=== PATIENT | female | born 1975 | race African-American/Black ===

== ENCOUNTER 2016-07-30 22:09 | Emergency (ER) | payer MEDICAID ==
[~2016-07-30] VITALS: Ht 152.4 cm; Wt 146.0 kg
[~2016-07-30 22:09] MED LIST: ALPR2TAB2 PO; CARI350T PO; COMBIVENT; HYDR-523 PO; LOSA50TA20 PO; NORT50CA PO; WARF7.5T22 PO; ZOLP5TAB2 PO; albuterol
[2016-07-30] MEDS ORDERED: PROCHLORPERAZINE MALEATE 10MG TABLET PO ONE (23:15)
[2016-07-30] MEDS ORDERED: DIPHENHYDRAMINE 50MG CAPSULE PO ONE (23:15)
[2016-07-30 23:36] LABS: BASOPHILS % 0.4 % (0.0-2.0); EOSINOPHILS % 1.1 % (0.0-5.0); HEMATOCRIT. 37.8 % (36.0-48.0); HEMOGLOBIN. 12.7 g/dL (12.0-16.0); LYMPHOCYTES % 17.9 % (20.0-50.0); MEAN CORPUSCULAR HEMOGLOBIN 29.6 pg (28.0-32.0); MEAN CORPUSCULAR HGB CONC 33.6 g/dL (31.0-37.0); MONOCYTES % 5.6 % (2.0-8.0); PLATELET 292 x1000/uL (130-400); RED BLOOD CELL COUNT 4.29 mill/uL (4.2-5.4); RED CELL DISTRIBUTION WIDTH 14.9 % (11.6-14.6); WHITE BLOOD COUNT 10.4 x1000/uL (4.5-11.0)
[2016-07-30 23:39] LABS: CHLORIDE 106 mEq/L (98-107); INDEX HEMOLYSI 1 (1-3); INDEX ICTERIC 1 (1-4); INDEX LIPEMIC 1 (1-3)
[2016-07-30 23:42] LABS: HCG SCREEN NEGATIVE
[2016-07-30 23:48] LABS: ALANINE AMINOTRANSFERASE 36 IU/L (13-61); ALBUMIN 3.6 g/dL (3.4-5.0); ANION GAP 13; CALCIUM 8.7 mg/dL (8.5-10.1); CARBON DIOXIDE 23 mEq/L (21-32); UREA NITROGEN BLOOD 10 mg/dL (7-21); eGFR > 60 mL/min (>60)
[2016-07-31] MEDS ORDERED: METOCLOPRAMIDE HCL 10MG/2ML VIAL IV ONE (01:00)
[2016-07-31 02:25] VITALS: BP 141/76
== END 2016-07-31 02:59 | disposition home or self-care (01) ==
LOC: ER 22:12
DX: R51 Headache (principal); R73.9 Hyperglycemia, unspecified; E11.9 Type 2 diabetes mellitus without complications; E78.00 Pure hypercholesterolemia, unspecified; F17.210 Nicotine dependence, cigarettes, uncomplicated; I10 Essential (primary) hypertension; J45.909 Unspecified asthma, uncomplicated; Z90.710 Acquired absence of both cervix and uterus; Z88.6 Allergy status to analgesic agent; Z86.711 Personal history of pulmonary embolism
CPT/HCPCS: 36415; 70450; 80053; 84703; 85025; 96374; 99285; J2765; Z7610; Q0163; Q0164

== ENCOUNTER 2016-09-23 17:46 | Emergency (ER) | payer MEDICAID ==
[~2016-09-23] VITALS: Ht 152.4 cm; Wt 157.0 kg
[2016-09-23 18:20] VITALS: BP 109/47
== END 2016-09-23 23:50 | disposition left against medical advice (07) ==
LOC: ER 17:47
DX: R11.2 Nausea with vomiting, unspecified (principal); Z53.21 Procedure and treatment not carried out due to patient leaving prior to being seen by health care provider

== ENCOUNTER 2016-12-04 00:07 | Emergency (ER) | payer MEDICAID ==
[~2016-12-04] VITALS: Ht 152.4 cm; Wt 150.0 kg
[2016-12-04] MEDS ORDERED: ONDANSETRON HCL 4MG/2ML VIAL IV STA (00:30)
[2016-12-04] MEDS ORDERED: SODIUM CHLORIDE 0.9% 1,000 ML IV ONE (00:30)
[2016-12-04] MEDS ORDERED: MORPHINE SULFATE 4 MG/ML CPJ (NOT FOR IM USE) IV STA (00:30)
[2016-12-04 00:46] LABS: BASOPHILS % 0.3 % (0.0-2.0); EOSINOPHILS % 0.2 % (0.0-5.0); HEMOGLOBIN. 13.4 g/dL (12.0-16.0); LYMPHOCYTES % 7.2 % (20.0-50.0); MEAN CORPUSCULAR HEMOGLOBIN 29.7 pg (28.0-32.0); MEAN CORPUSCULAR VOLUME 86.3 fL (81.0-99.0); MEAN PLATELET VOLUME 8.4 fl (7.4-10.4); MONOCYTES % 4.2 % (2.0-8.0); NEUTROPHILS % 88.1 % (40.0-76.0); PLATELET 286 x1000/uL (130-400); RED BLOOD CELL COUNT 4.52 mill/uL (4.2-5.4); RED CELL DISTRIBUTION WIDTH 14.5 % (11.6-14.6)
[2016-12-04 00:53] LABS: CHLORIDE 100 mEq/L (98-107)
[2016-12-04 00:54] LABS: HCG SCREEN NEGATIVE
[2016-12-04 00:55] LABS: PROTHROMBIN TIME 10.8 sec
[2016-12-04 01:01] LABS: CARBON DIOXIDE 25 mEq/L (21-32)
[2016-12-04 04:17] LABS: CLARITY URINE CLEAR (CLEAR); COLOR URINE YELLOW (YELLOW); GLUCOSE URINE 3+ (NEGATIVE); KETONES URINE 1+ (NEGATIVE); LEUKOCYTE ESTERASE URINE 2+ (NEGATIVE); NITRITE URINE POSITIVE (NEGATIVE); OCCULT BLOOD URINE 2+ (NEGATIVE); PROTEIN URINE 1+ (NEGATIVE); SPECIFIC GRAVITY URINE 1.015 (1.005-1.030); UROBILINOGEN URINE 0.2 E.U./dL (0.2-1.0)
[2016-12-04] MEDS ORDERED: PANTOPRAZOLE SODIUM 40 MG/VIAL IV ONE (07:00)
[2016-12-04] MEDS ORDERED: FAMOTIDINE 20MG/2ML VIAL IV ONE (07:00)
[2016-12-04] MEDS ORDERED: MORPHINE SULFATE 4 MG/ML CPJ (NOT FOR IM USE) IV ONE (07:15)
[2016-12-04 08:55] VITALS: BP 158/84
[2016-12-04] MEDS ORDERED: IOHEXOL-300 100 ML BOTTLE ONE (14:28)
[2016-12-04] MEDS ORDERED: SODIUM CHLORIDE 0.9% 10ML VIAL ONE (14:28)
== END 2016-12-04 09:16 | disposition home or self-care (01) ==
LOC: ER 00:07
DX: K29.80 Duodenitis without bleeding (principal); N39.0 Urinary tract infection, site not specified; M79.7 Fibromyalgia; J45.909 Unspecified asthma, uncomplicated; I10 Essential (primary) hypertension; E78.00 Pure hypercholesterolemia, unspecified; E11.9 Type 2 diabetes mellitus without complications; Z79.01 Long term (current) use of anticoagulants; Z90.49 Acquired absence of other specified parts of digestive tract; Z90.710 Acquired absence of both cervix and uterus; Z88.6 Allergy status to analgesic agent
CPT/HCPCS: 36415; 74177; 80053; 81001; 82962; 83690; 84703; 85025; 85610; 96361; 96374; 96375; 96376; 99285; A4216; C9113; J2270; J2405; J3490; J7030; Q9967; Z7610

== ENCOUNTER 2017-01-04 23:11 | Emergency (ER) | payer MEDICAID ==
[~2017-01-04] VITALS: Ht 152.4 cm; Wt 137.0 kg
[2017-01-05] MEDS ORDERED: PREDNISONE 20MG TABLET PO ONE (04:00)
[2017-01-05] MEDS ORDERED: LIDOCAINE 5% PATCH TOP SCH (04:00)
[2017-01-05] MEDS ORDERED: HYDROCODONE/ACETAMINOPHEN 10/325MG TABLET PO ONE (07:15)
[2017-01-05 07:40] VITALS: BP 147/92
== END 2017-01-05 07:43 | disposition home or self-care (01) ==
LOC: ER 23:11
DX: M76.61 Achilles tendinitis, right leg (principal); M72.2 Plantar fascial fibromatosis; G89.29 Other chronic pain; E11.9 Type 2 diabetes mellitus without complications; I10 Essential (primary) hypertension; M79.7 Fibromyalgia; J45.909 Unspecified asthma, uncomplicated; E78.00 Pure hypercholesterolemia, unspecified; F12.10 Cannabis abuse, uncomplicated; F17.210 Nicotine dependence, cigarettes, uncomplicated; Z88.6 Allergy status to analgesic agent; Z79.01 Long term (current) use of anticoagulants; Z86.711 Personal history of pulmonary embolism; Z90.710 Acquired absence of both cervix and uterus
CPT/HCPCS: 73630; 82962; 93971; 99284; J7512

== ENCOUNTER 2017-03-24 21:53 | Emergency (ER) | payer MEDICAID, OTHER ==
[~2017-03-24] VITALS: Ht 152.4 cm; Wt 144.0 kg
[2017-03-24] MEDS ORDERED: ONDANSETRON HCL 4MG/2ML VIAL IV STA (22:42)
[2017-03-24] MEDS ORDERED: METHYLPREDNISOLONE SOD SUCC 125 MG/2 ML VIAL IV STA (22:42)
[2017-03-24] MEDS ORDERED: MORPHINE SULFATE 4 MG/ML CPJ (NOT FOR IM USE) IV STA (22:42)
[2017-03-24] MEDS ORDERED: IPRATROPIUM BROMIDE (0.02%) 0.5MG/2.5ML NEB HHN STA (22:42)
[2017-03-24] MEDS ORDERED: ALBUTEROL (0.083%) 2.5MG/3ML NEB HHN STA (22:42)
[2017-03-24] MEDS ORDERED: SODIUM CHLORIDE 0.9% 1,000 ML IV ONE (22:42)
[2017-03-24] MEDS ORDERED: ASPIRIN 81MG TABLET PO ONE (22:45)
[2017-03-24] MEDS ORDERED: MAGNESIUM 2 G PREMIX 50 ML IV ONE (22:45)
[2017-03-24 23:16] LABS: BASOPHILS % 0.5 % (0.0-2.0); EOSINOPHILS % 1.2 % (0.0-5.0); HEMATOCRIT. 38.1 % (36.0-48.0); HEMOGLOBIN. 13.1 g/dL (12.0-16.0); LYMPHOCYTES % 14.2 % (20.0-50.0); MEAN CORPUSCULAR HEMOGLOBIN 29.2 pg (28.0-32.0); MEAN CORPUSCULAR VOLUME 84.6 fL (81.0-99.0); MEAN PLATELET VOLUME 7.7 fl (7.4-10.4); MONOCYTES % 13.9 % (2.0-8.0); NEUTROPHILS % 70.2 % (40.0-76.0); PLATELET 234 x1000/uL (130-400); RED CELL DISTRIBUTION WIDTH 14.5 % (11.6-14.6)
[2017-03-24 23:18] LABS: CLARITY URINE TURBID (CLEAR); COLOR URINE DARK YELLOW (YELLOW); GLUCOSE URINE NEGATIVE (NEGATIVE); KETONES URINE TRACE (NEGATIVE); LEUKOCYTE ESTERASE URINE 1+ (NEGATIVE); NITRITE URINE POSITIVE (NEGATIVE); OCCULT BLOOD URINE NEGATIVE (NEGATIVE); PH URINE 5.5 (4.5-8.0); PROTEIN URINE TRACE (NEGATIVE); SPECIFIC GRAVITY URINE 1.023 (1.005-1.030)
[2017-03-24] MEDS ORDERED: DIPHENHYDRAMINE 50MG/ML VIAL IV ONE (23:30)
[2017-03-24 23:33] LABS: CARBON DIOXIDE 21 mEq/L (21-32); CHLORIDE 105 mEq/L (98-107); ETHANOL BLOOD < 10 mg/dL; TROPONIN I < 0.02 ng/mL (0.00-0.04)
[2017-03-24] MEDS ORDERED: SODIUM CHLORIDE 0.9% 1,000 ML IV NR (23:58)
[2017-03-25] MEDS ORDERED: INSULIN REGULAR (HUMULIN R) 300UNITS/3ML IV NR
[2017-03-25 00:05] LABS: *AMPHETAMINES SCREEN URINE NEGATIVE (NEGATIVE); *BARBITURATES SCREEN URINE NEGATIVE (NEGATIVE); *BENZODIAZEPINES SCREEN URINE NEGATIVE (NEGATIVE); *COCAINE SCREEN URINE NEGATIVE (NEGATIVE); CANNABINOID URINE SCREEN NEGATIVE (NEGATIVE); METHADONE URINE SCREEN NEGATIVE (NEGATIVE); OPIATES URINE SCREEN NEGATIVE (NEGATIVE); PHENCYCLIDINE URINE SCREEN NEGATIVE (NEGATIVE)
[2017-03-25] MEDS ORDERED: IOHEXOL-350 100 ML BOTTLE ONE (01:04)
[2017-03-25 02:58] VITALS: BP 138/81
== END 2017-03-25 03:01 | disposition home or self-care (01) ==
LOC: ER 21:53
DX: R07.89 Other chest pain (principal); E11.65 Type 2 diabetes mellitus with hyperglycemia; N39.0 Urinary tract infection, site not specified; E78.00 Pure hypercholesterolemia, unspecified; J45.909 Unspecified asthma, uncomplicated; M79.7 Fibromyalgia; F17.210 Nicotine dependence, cigarettes, uncomplicated; F12.10 Cannabis abuse, uncomplicated; Z86.711 Personal history of pulmonary embolism; Z90.710 Acquired absence of both cervix and uterus; Z79.01 Long term (current) use of anticoagulants; Z91.14 Patient's other noncompliance with medication regimen
CPT/HCPCS: 36415; 71010; 71275; 80053; 80305; 81001; 82962; 83690; 83880; 84484; 85025; 85379; 93005; 94640; 96361; 96365; 96375; 99285; G0482; J1200; J1815; J2270; J2405; J2930; J3475; J7030; J7611; Q9967; Z7610

== ENCOUNTER 2017-04-14 18:58 | Emergency (ER) | payer MEDICAID ==
[~2017-04-14] VITALS: Ht 152.4 cm; Wt 128.0 kg
[2017-04-14] MEDS ORDERED: METF500T4 PO (19:12)
[2017-04-14] MEDS ORDERED: GLIP5TAB12 PO (19:12)
[2017-04-14] MEDS ORDERED: GABA-529 PO (19:12)
[2017-04-14] MEDS ORDERED: SODIUM CHLORIDE 0.9% 1,000 ML IV ONE (23:15)
[2017-04-14] MEDS ORDERED: MORPHINE SULFATE 4 MG/ML CPJ (NOT FOR IM USE) IV STA (23:15)
[2017-04-14] MEDS ORDERED: ONDANSETRON HCL 4MG/2ML VIAL IV STA (23:15)
[2017-04-14 23:39] LABS: CLARITY URINE CLOUDY (CLEAR); COLOR URINE YELLOW (YELLOW); GLUCOSE URINE NEGATIVE (NEGATIVE); KETONES URINE TRACE (NEGATIVE); LEUKOCYTE ESTERASE URINE 2+ (NEGATIVE); NITRITE URINE POSITIVE (NEGATIVE); OCCULT BLOOD URINE NEGATIVE (NEGATIVE); PROTEIN URINE 2+ (NEGATIVE); SPECIFIC GRAVITY URINE 1.022 (1.005-1.030)
[2017-04-14] MEDS ORDERED: MORPHINE SULFATE 10 MG/ML CPJ IV STA (23:42)
[2017-04-14 23:44] LABS: BASOPHILS % 0.4 % (0.0-2.0); EOSINOPHILS % 1.9 % (0.0-5.0); HEMATOCRIT. 37.8 % (36.0-48.0); HEMOGLOBIN. 12.6 g/dL (12.0-16.0); LYMPHOCYTES % 17.7 % (20.0-50.0); MEAN CORPUSCULAR HEMOGLOBIN 28.8 pg (28.0-32.0); MEAN CORPUSCULAR VOLUME 86.3 fL (81.0-99.0); MEAN PLATELET VOLUME 8.4 fl (7.4-10.4); MONOCYTES % 4.4 % (2.0-8.0); NEUTROPHILS % 75.6 % (40.0-76.0); PLATELET 246 x1000/uL (130-400); RED BLOOD CELL COUNT 4.38 mill/uL (4.2-5.4); RED CELL DISTRIBUTION WIDTH 15.1 % (11.6-14.6)
[2017-04-14] MEDS ORDERED: MORPHINE SULFATE 10 MG/ML CPJ IV SCH (23:45)
[2017-04-14 23:47] LABS: CARBON DIOXIDE 26 mEq/L (21-32); CHLORIDE 105 mEq/L (98-107)
[2017-04-15] MEDS ORDERED: CEFTRIAXONE 1 G PREMIX 50 ML IV ONE (01:30)
[2017-04-15 04:38] VITALS: BP 110/69
== END 2017-04-15 04:42 | disposition home or self-care (01) ==
LOC: ER 19:35
DX: N39.0 Urinary tract infection, site not specified (principal); E11.65 Type 2 diabetes mellitus with hyperglycemia; I10 Essential (primary) hypertension; E78.00 Pure hypercholesterolemia, unspecified; J45.909 Unspecified asthma, uncomplicated; M79.7 Fibromyalgia; F17.210 Nicotine dependence, cigarettes, uncomplicated; Z79.01 Long term (current) use of anticoagulants; Z79.899 Other long term (current) drug therapy
CPT/HCPCS: 36415; 71010; 80053; 81001; 81025; 83690; 85025; 96361; 96365; 96375; 99285; J0696; J2270; J2405; J7030; Z7610

== ENCOUNTER 2017-05-11 19:28 | Inpatient (IN) | payer MEDICAID ==
[~2017-05-11] VITALS: Ht 152.4 cm; Wt 130.6 kg
[~2017-05-11 19:28] MED LIST changes: +GABA-529 PO; +GLIP5TAB12 PO; +METF500T4 PO
[2017-05-12] MEDS ORDERED: ONDANSETRON HCL 4MG/2ML VIAL IV STA (00:05)
[2017-05-12] MEDS ORDERED: SODIUM CHLORIDE 0.9% 1,000 ML IV ONE (00:05)
[2017-05-12] MEDS ORDERED: MORPHINE SULFATE 4 MG/ML CPJ (NOT FOR IM USE) IV STA (00:05)
[2017-05-12 00:29] LABS: BASOPHILS % 0.4 % (0.0-2.0); EOSINOPHILS % 1.9 % (0.0-5.0); HEMATOCRIT. 37.5 % (36.0-48.0); HEMOGLOBIN. 12.6 g/dL (12.0-16.0); LYMPHOCYTES % 17.1 % (20.0-50.0); MEAN CORPUSCULAR HEMOGLOBIN 29.3 pg (28.0-32.0); MEAN CORPUSCULAR VOLUME 87.1 fL (81.0-99.0); MEAN PLATELET VOLUME 8.8 fl (7.4-10.4); MONOCYTES % 5.7 % (2.0-8.0); NEUTROPHILS % 74.9 % (40.0-76.0); PLATELET 285 x1000/uL (130-400); RED CELL DISTRIBUTION WIDTH 15.3 % (11.6-14.6)
[2017-05-12 00:30] LABS: CHLORIDE 106 mEq/L (98-107)
[2017-05-12 00:35] LABS: INR 1.1; PROTHROMBIN TIME 11.8 sec (9.4-11.6)
[2017-05-12 00:39] LABS: CARBON DIOXIDE 27 mEq/L (21-32)
[2017-05-12 00:42] LABS: CLARITY URINE CLEAR (CLEAR); COLOR URINE YELLOW (YELLOW); KETONES URINE NEGATIVE (NEGATIVE); LEUKOCYTE ESTERASE URINE NEGATIVE (NEGATIVE); NITRITE URINE NEGATIVE (NEGATIVE); OCCULT BLOOD URINE NEGATIVE (NEGATIVE); PH URINE 7.5 (4.5-8.0); PROTEIN URINE NEGATIVE (NEGATIVE); SPECIFIC GRAVITY URINE 1.009 (1.005-1.030); UROBILINOGEN URINE 0.2 E.U./dL (0.2-1.0)
[2017-05-12] MEDS ORDERED: DICYCLOMINE HCL 10MG/ML 2ML AMP IM PRN ×2 (02:00→11:00)
[2017-05-12] MEDS ORDERED: METOCLOPRAMIDE HCL 10MG/2ML VIAL IV ONE (03:15)
[2017-05-12] MEDS ORDERED: ONDANSETRON HCL 4MG/2ML VIAL IV ONE (04:15)
[2017-05-12] MEDS ORDERED: MORPHINE SULFATE 4 MG/ML CPJ (NOT FOR IM USE) IV ONE (04:15)
[2017-05-12 09:30] VITALS: BP 125/86
[2017-05-12 09:45] VITALS: BP 125/86
[2017-05-12] MEDS ORDERED: DEXTROSE 50% WATER 50ML SYRINGE IV PRN (10:30)
[2017-05-12] MEDS ORDERED: DOCUSATE SODIUM 100MG CAPSULE PO PRN (10:30)
[2017-05-12] MEDS ORDERED: CLONIDINE 0.1MG TABLET PO PRN (10:30)
[2017-05-12] MEDS ORDERED: IPRATROPIUM/ALBUTEROL 0.5-3(2.5)MG/3ML NEB INH PRN (10:30)
[2017-05-12] MEDS: PANTOPRAZOLE SODIUM 40 MG/VIAL IV SCH (11:40)
[2017-05-12 12:00] VITALS: BP 121/74
[2017-05-12] MEDS ORDERED: DICYCLOMINE HCL 20MG TABLET PO SCH (12:00)
[2017-05-12] MEDS: LOSARTAN POTASSIUM 50 MG TABLET PO SCH (12:00)
[2017-05-12] MEDS ORDERED: METOCLOPRAMIDE HCL 10MG TABLET PO SCH (12:00)
[2017-05-12] MEDS: BLOOD SUGAR DIAGNOSTIC STRIP TEST SCH ×3 (12:20→21:09)
[2017-05-12 12:46] LABS: CLARITY URINE CLEAR (CLEAR); COLOR URINE YELLOW (YELLOW); KETONES URINE 1+ (NEGATIVE); LEUKOCYTE ESTERASE URINE NEGATIVE (NEGATIVE); NITRITE URINE NEGATIVE (NEGATIVE); OCCULT BLOOD URINE NEGATIVE (NEGATIVE); PH URINE 8.5 (4.5-8.0); PROTEIN URINE NEGATIVE (NEGATIVE); SPECIFIC GRAVITY URINE 1.012 (1.005-1.030); UROBILINOGEN URINE 0.2 E.U./dL (0.2-1.0)
[2017-05-12] MEDS: INSULIN LISPRO 100 UNITS/ML SUBCUT SCH ×3 (12:48→21:44)
[2017-05-12 13:08] LABS: *AMPHETAMINES SCREEN URINE NEGATIVE (NEGATIVE); *BARBITURATES SCREEN URINE NEGATIVE (NEGATIVE); *BENZODIAZEPINES SCREEN URINE NEGATIVE (NEGATIVE); *COCAINE SCREEN URINE NEGATIVE (NEGATIVE); CANNABINOID URINE SCREEN NEGATIVE (NEGATIVE); METHADONE URINE SCREEN NEGATIVE (NEGATIVE); PHENCYCLIDINE URINE SCREEN NEGATIVE (NEGATIVE)
[2017-05-12] MEDS: ONDANSETRON HCL 4MG/2ML VIAL IV PRN ×2 (13:18→20:30)
[2017-05-12] MEDS: DEXT 5%/0.45% NACL KCL 20MEQ/L 1,000 ML IV SCH ×2 (13:18→20:33)
[2017-05-12 13:40] LABS: OPIATES URINE SCREEN PRESUMTIVE POSITIVE (NEGATIVE)
[2017-05-12] MEDS: MORPHINE SULFATE 2 MG/ML CPJ (NOT FOR IM USE) IV PRN ×2 (14:28→18:23)
[2017-05-12 16:00] VITALS: BP 130/59
[2017-05-12 20:00] VITALS: BP 121/68
[2017-05-12] MEDS ORDERED: POTASSIUM CHLORIDE 20MEQ TABLET SR PO NR (20:30)
[2017-05-12] MEDS: ZOLPIDEM TARTRATE 5MG TABLET PO PRN (22:45)
[2017-05-12] MEDS ORDERED: HYDROCODONE/ACETAMINOPHEN 5/325MG TABLET PO PRN (22:45)
[2017-05-12] MEDS: METOCLOPRAMIDE HCL 10MG/2ML VIAL IV PRN (22:51)
[2017-05-12] MEDS: DIPHENHYDRAMINE 50MG/ML VIAL IV PRN (23:36)
[2017-05-13] VITALS: BP 128/71
[2017-05-13 04:00] VITALS: BP 130/78
[2017-05-13] MEDS: METOCLOPRAMIDE HCL 10MG/2ML VIAL IV PRN ×2 (05:25→12:50)
[2017-05-13] MEDS: DEXT 5%/0.45% NACL KCL 20MEQ/L 1,000 ML IV SCH ×3 (05:28→21:00)
[2017-05-13 05:52] LABS: BASOPHILS % 0.4 % (0.0-2.0); HEMATOCRIT. 40.3 % (36.0-48.0); HEMOGLOBIN. 13.9 g/dL (12.0-16.0); LYMPHOCYTES % 14.8 % (20.0-50.0); MONOCYTES % 7.6 % (2.0-8.0); NEUTROPHILS % 75.2 % (40.0-76.0); PLATELET 288 x1000/uL (130-400); RED BLOOD CELL COUNT 4.63 mill/uL (4.2-5.4); RED CELL DISTRIBUTION WIDTH 15.5 % (11.6-14.6)
[2017-05-13] MEDS: BLOOD SUGAR DIAGNOSTIC STRIP TEST SCH ×4 (07:20→21:02)
[2017-05-13 07:48] LABS: CARBON DIOXIDE 27 mEq/L (21-32); CHLORIDE 104 mEq/L (98-107); HDL CHOLESTEROL 47 mg/dL (40-59); LDL CHOLESTEROL 129 mg/dL (5-100)
[2017-05-13] MEDS: INSULIN LISPRO 100 UNITS/ML SUBCUT SCH ×4 (07:50→22:19)
[2017-05-13 08:00] VITALS: BP 139/93
[2017-05-13] MEDS: LOSARTAN POTASSIUM 50 MG TABLET PO SCH (08:47)
[2017-05-13] MEDS: PANTOPRAZOLE SODIUM 40 MG/VIAL IV SCH ×2 (08:47→17:42)
[2017-05-13] MEDS: ACETAMINOPHEN 325MG TABLET PO PRN (08:58)
[2017-05-13 12:00] VITALS: BP 144/88
[2017-05-13] MEDS ORDERED: MORPHINE SULFATE 2 MG/ML CPJ (NOT FOR IM USE) IV PRN (13:15)
[2017-05-13] MEDS: MORPHINE SULFATE 2 MG/ML CPJ (NOT FOR IM USE) IV PRN ×3 (13:33→22:14)
[2017-05-13 16:00] VITALS: BP 149/88
[2017-05-13] MEDS: METOCLOPRAMIDE HCL 10MG/2ML VIAL IV SCH ×2 (17:43→23:42)
[2017-05-13 20:00] VITALS: BP 151/90
[2017-05-13] MEDS: ZOLPIDEM TARTRATE 5MG TABLET PO PRN (23:42)
[2017-05-14] VITALS: BP 131/70
[2017-05-14] MEDS: DIPHENHYDRAMINE 50MG/ML VIAL IV PRN ×2 (00:06→20:10)
[2017-05-14] MEDS: MORPHINE SULFATE 2 MG/ML CPJ (NOT FOR IM USE) IV PRN ×6 (02:10→23:40)
[2017-05-14 04:00] VITALS: BP 141/85
[2017-05-14] MEDS: DEXT 5%/0.45% NACL KCL 20MEQ/L 1,000 ML IV SCH ×3 (04:29→20:04)
[2017-05-14] MEDS: METOCLOPRAMIDE HCL 10MG/2ML VIAL IV SCH ×4 (06:16→23:39)
[2017-05-14] MEDS: BLOOD SUGAR DIAGNOSTIC STRIP TEST SCH ×4 (07:20→20:10)
[2017-05-14 08:00] VITALS: BP 133/91
[2017-05-14] MEDS: LOSARTAN POTASSIUM 50 MG TABLET PO SCH (09:40)
[2017-05-14] MEDS: PANTOPRAZOLE SODIUM 40 MG/VIAL IV SCH ×2 (09:41→17:16)
[2017-05-14] MEDS: INSULIN LISPRO 100 UNITS/ML SUBCUT SCH ×4 (09:50→20:17)
[2017-05-14 12:00] VITALS: BP 155/90
[2017-05-14 16:00] VITALS: BP 129/93
[2017-05-14 20:00] VITALS: BP 122/74
[2017-05-14] MEDS: ZOLPIDEM TARTRATE 5MG TABLET PO PRN (20:10)
[2017-05-15] VITALS: BP 137/80
[2017-05-15 04:00] VITALS: BP 114/75
[2017-05-15] MEDS: DIPHENHYDRAMINE 50MG/ML VIAL IV PRN ×5 (05:25→22:02)
[2017-05-15] MEDS: METOCLOPRAMIDE HCL 10MG/2ML VIAL IV SCH ×2 (05:26→17:09)
[2017-05-15] MEDS: MORPHINE SULFATE 2 MG/ML CPJ (NOT FOR IM USE) IV PRN ×5 (05:26→22:03)
[2017-05-15] MEDS: METOCLOPRAMIDE HCL 10MG/2ML VIAL IV PRN (05:26)
[2017-05-15] MEDS: DEXT 5%/0.45% NACL KCL 20MEQ/L 1,000 ML IV SCH ×3 (05:27→18:17)
[2017-05-15] MEDS: ACETAMINOPHEN 325MG TABLET PO PRN (05:27)
[2017-05-15] MEDS: BLOOD SUGAR DIAGNOSTIC STRIP TEST SCH ×4 (06:57→21:03)
[2017-05-15] MEDS: INSULIN LISPRO 100 UNITS/ML SUBCUT SCH ×4 (07:50→21:30)
[2017-05-15 08:00] VITALS: BP 139/91
[2017-05-15] MEDS: PANTOPRAZOLE SODIUM 40 MG/VIAL IV SCH ×2 (09:44→17:09)
[2017-05-15] MEDS: LOSARTAN POTASSIUM 50 MG TABLET PO SCH (09:44)
[2017-05-15] MEDS: ONDANSETRON HCL 4MG/2ML VIAL IV PRN ×2 (09:53→22:02)
[2017-05-15 12:00] VITALS: BP 156/88
[2017-05-15 16:00] VITALS: BP 111/66
[2017-05-15 20:00] VITALS: BP 148/77
[2017-05-15] MEDS: ZOLPIDEM TARTRATE 5MG TABLET PO PRN (23:56)
[2017-05-16] VITALS: BP 135/78
[2017-05-16] MEDS: METOCLOPRAMIDE HCL 10MG/2ML VIAL IV SCH ×3 (00:54→12:10)
[2017-05-16] MEDS: DIPHENHYDRAMINE 50MG/ML VIAL IV PRN ×3 (02:03→10:31)
[2017-05-16] MEDS: MORPHINE SULFATE 2 MG/ML CPJ (NOT FOR IM USE) IV PRN ×3 (02:03→10:32)
[2017-05-16 04:00] VITALS: BP 113/56
[2017-05-16] MEDS: DEXT 5%/0.45% NACL KCL 20MEQ/L 1,000 ML IV SCH (06:10)
[2017-05-16] MEDS: BLOOD SUGAR DIAGNOSTIC STRIP TEST SCH ×2 (06:20→12:10)
[2017-05-16 06:29] LABS: BASOPHILS % 0.5 % (0.0-2.0); EOSINOPHILS % 1.8 % (0.0-5.0); HEMATOCRIT. 36.8 % (36.0-48.0); HEMOGLOBIN. 12.7 g/dL (12.0-16.0); LYMPHOCYTES % 24.6 % (20.0-50.0); MEAN CORPUSCULAR VOLUME 86.8 fL (81.0-99.0); MEAN PLATELET VOLUME 8.8 fl (7.4-10.4); MONOCYTES % 6.4 % (2.0-8.0); NEUTROPHILS % 66.7 % (40.0-76.0); PLATELET 257 x1000/uL (130-400); RED BLOOD CELL COUNT 4.24 mill/uL (4.2-5.4); RED CELL DISTRIBUTION WIDTH 15.6 % (11.6-14.6)
[2017-05-16] MEDS: INSULIN LISPRO 100 UNITS/ML SUBCUT SCH ×2 (06:55→12:20)
[2017-05-16 08:00] VITALS: BP 124/78
[2017-05-16] MEDS: LOSARTAN POTASSIUM 50 MG TABLET PO SCH (08:51)
[2017-05-16] MEDS: PANTOPRAZOLE SODIUM 40 MG/VIAL IV SCH (08:51)
[2017-05-16 11:25] VITALS: BP 124/78
[2017-05-16 12:00] VITALS: BP 154/81
[2017-05-22 04:15] LABS: OVA & PARASITE EXAM Final report (.)
== END 2017-05-16 12:45 | disposition home or self-care (01) | DRG 282 ==
LOC: ER 19:55 → 6EST 05-12 06:01 → ENRESERV 05-12 07:10
PROVIDERS: ADMIT Internal Medicine; ATTEND Internal Medicine
DX: K85.90 Acute pancreatitis without necrosis or infection, unspecified (principal); K31.84 Gastroparesis; E11.40 Type 2 diabetes mellitus with diabetic neuropathy, unspecified; Z68.43 Body mass index [BMI] 50.0-59.9, adult; E11.43 Type 2 diabetes mellitus with diabetic autonomic (poly)neuropathy; I10 Essential (primary) hypertension; J45.909 Unspecified asthma, uncomplicated; E66.01 Morbid (severe) obesity due to excess calories; M79.7 Fibromyalgia; E78.00 Pure hypercholesterolemia, unspecified; E78.5 Hyperlipidemia, unspecified; F12.90 Cannabis use, unspecified, uncomplicated; F17.200 Nicotine dependence, unspecified, uncomplicated; Z88.8 Allergy status to other drugs, medicaments and biological substances; Z90.49 Acquired absence of other specified parts of digestive tract; Z90.710 Acquired absence of both cervix and uterus; Z79.01 Long term (current) use of anticoagulants; Z79.899 Other long term (current) drug therapy; Z79.84 Long term (current) use of oral hypoglycemic drugs; Z86.711 Personal history of pulmonary embolism
CPT/HCPCS: 36415; 71010; 74176; 80053; 80061; 80305; 81003; 82962; 83036; 83690; 84145; 84443; 84484; 85025; 85610; 87015; 87040; 87045; 87070; 87086; 87177; 87209; 87427; 87449; 87493; 89055; 93970; 96374; 96375; 99285; C1893; C9113; J0500; J1200; J1815; J2270; J2405; J2765; J7030

== ENCOUNTER 2017-06-16 23:53 | Emergency (ER) | payer MEDICAID ==
[~2017-06-16] VITALS: Ht 152.4 cm; Wt 113.0 kg
[~2017-06-16 23:53] MED LIST changes: -WARF7.5T22 PO
[2017-06-17] MEDS ORDERED: DEXAMETHASONE 10 MG/ML VIAL IV ONE (00:45)
[2017-06-17] MEDS ORDERED: DICLOFENAC SODIUM 50MG EC TABLET PO ONE (00:45)
[2017-06-17] MEDS ORDERED: DIPHENHYDRAMINE 50MG/ML VIAL IV ONE (00:45)
[2017-06-17] MEDS ORDERED: PROCHLORPERAZINE 10MG/2ML VIAL IV ONE (00:45)
[2017-06-17 00:49] LABS: BASOPHILS % 0.6 % (0.0-2.0); EOSINOPHILS % 2.8 % (0.0-5.0); HEMATOCRIT. 38.5 % (36.0-48.0); LYMPHOCYTES % 24.3 % (20.0-50.0); MEAN CORPUSCULAR HEMOGLOBIN 29.5 pg (28.0-32.0); MEAN CORPUSCULAR VOLUME 87.5 fL (81.0-99.0); MEAN PLATELET VOLUME 8.4 fl (7.4-10.4); MONOCYTES % 5.3 % (2.0-8.0); PLATELET 307 x1000/uL (130-400); RED CELL DISTRIBUTION WIDTH 15.5 % (11.6-14.6)
[2017-06-17 00:57] LABS: D-DIMER 0.47 mg/L FEU (<0.50); INR 1.1; PROTHROMBIN TIME 11.4 sec (9.4-11.6)
[2017-06-17 01:03] LABS: CARBON DIOXIDE 26 mEq/L (21-32); CHLORIDE 107 mEq/L (98-107); TROPONIN I < 0.02 ng/mL (0.00-0.04)
[2017-06-17 06:06] VITALS: BP 124/83
== END 2017-06-17 06:09 | disposition home or self-care (01) ==
LOC: ER 23:53 → CANBEDREQ 06-17 06:43
DX: R07.89 Other chest pain (principal); R51 Headache; M79.642 Pain in left hand; I10 Essential (primary) hypertension; J45.909 Unspecified asthma, uncomplicated; E11.9 Type 2 diabetes mellitus without complications; M79.7 Fibromyalgia; E78.00 Pure hypercholesterolemia, unspecified; F17.210 Nicotine dependence, cigarettes, uncomplicated; F12.90 Cannabis use, unspecified, uncomplicated; Z90.49 Acquired absence of other specified parts of digestive tract; Z90.710 Acquired absence of both cervix and uterus
CPT/HCPCS: 36415; 71045; 73130; 80053; 83880; 84484; 85025; 85379; 85610; 93005; 96374; 96375; 99285; J0780; J1100; J1200

== ENCOUNTER 2017-08-06 22:27 | Emergency (ER) | payer MEDICAID ==
[~2017-08-06] VITALS: Ht 152.4 cm; Wt 127.4 kg
[2017-08-07] MEDS ORDERED: ASPIRIN 81MG TABLET PO ONE (01:30)
[2017-08-07 01:44] LABS: CLARITY URINE TURBID (CLEAR); COLOR URINE YELLOW (YELLOW); KETONES URINE TRACE (NEGATIVE); LEUKOCYTE ESTERASE URINE 2+ (NEGATIVE); NITRITE URINE POSITIVE (NEGATIVE); OCCULT BLOOD URINE NEGATIVE (NEGATIVE); PROTEIN URINE NEGATIVE (NEGATIVE); SPECIFIC GRAVITY URINE 1.018 (1.005-1.030); UROBILINOGEN URINE 0.2 E.U./dL (0.2-1.0)
[2017-08-07 01:45] LABS: BASOPHILS % 0.6 % (0.0-2.0); HEMOGLOBIN. 12.5 g/dL (12.0-16.0); LYMPHOCYTES % 24.3 % (20.0-50.0); MEAN CORPUSCULAR HEMOGLOBIN 30.7 pg (28.0-32.0); MEAN CORPUSCULAR VOLUME 88.3 fL (81.0-99.0); MEAN PLATELET VOLUME 7.8 fl (7.4-10.4); MONOCYTES % 5.5 % (2.0-8.0); NEUTROPHILS % 66.6 % (40.0-76.0); PLATELET 320 x1000/uL (130-400); RED BLOOD CELL COUNT 4.08 mill/uL (4.2-5.4)
[2017-08-07 01:57] LABS: CHLORIDE 109 mEq/L (98-107); ETHANOL BLOOD < 10 mg/dL
[2017-08-07 02:00] LABS: INR 1.1; PROTHROMBIN TIME 10.9 sec (9.4-11.6)
[2017-08-07 02:08] LABS: *AMPHETAMINES SCREEN URINE NEGATIVE (NEGATIVE); *BARBITURATES SCREEN URINE NEGATIVE (NEGATIVE); *BENZODIAZEPINES SCREEN URINE NEGATIVE (NEGATIVE); *COCAINE SCREEN URINE NEGATIVE (NEGATIVE); CANNABINOID URINE SCREEN NEGATIVE (NEGATIVE); METHADONE URINE SCREEN NEGATIVE (NEGATIVE); OPIATES URINE SCREEN NEGATIVE (NEGATIVE); PHENCYCLIDINE URINE SCREEN NEGATIVE (NEGATIVE)
[2017-08-07] MEDS ORDERED: MORPHINE SULFATE 4 MG/ML CPJ (NOT FOR IM USE) IV SCH (02:56)
[2017-08-07] MEDS ORDERED: CEFTRIAXONE 1 G PREMIX 50 ML IV SCH (02:57)
[2017-08-07 05:05] VITALS: BP 135/77
== END 2017-08-07 08:49 | disposition left against medical advice (07) ==
LOC: ER 22:27 → ENRESERV 08-07 07:55 → CANRESERV 08-07 07:56 → ENRESERV 08-07 07:56 → ER 08-07 08:49 → CANBEDREQ 08-07 13:56
DX: R07.89 Other chest pain (principal); N39.0 Urinary tract infection, site not specified; J45.909 Unspecified asthma, uncomplicated; E11.9 Type 2 diabetes mellitus without complications; I10 Essential (primary) hypertension; F17.200 Nicotine dependence, unspecified, uncomplicated; Z12.10 Encounter for screening for malignant neoplasm of intestinal tract, unspecified; Z90.710 Acquired absence of both cervix and uterus; Z90.49 Acquired absence of other specified parts of digestive tract; Z88.6 Allergy status to analgesic agent; Z86.711 Personal history of pulmonary embolism; Z98.890 Other specified postprocedural states; Z88.8 Allergy status to other drugs, medicaments and biological substances
CPT/HCPCS: 36415; 71045; 80053; 80305; 81003; 81025; 82962; 83690; 83880; 84484; 85025; 85610; 87077; 87086; 87186; 93005; 96365; 96375; 99285; G0482; J0696; J2270; Z7610

== ENCOUNTER 2017-08-21 17:33 | Inpatient (IN) | payer MEDICAID ==
[~2017-08-21] VITALS: Ht 152.4 cm; Wt 122.5 kg
[2017-08-21] MEDS ORDERED: ACETAMINOPHEN 325MG TABLET PO STA (18:12)
[2017-08-21] MEDS ORDERED: NITROGLYCERIN OINT 1GM/INCH UDPKT TD ONE (18:15)
[2017-08-21] MEDS ORDERED: ASPIRIN 81MG TABLET PO ONE (18:15)
[2017-08-21 18:26] LABS: BASOPHILS % 0.3 % (0.0-2.0); EOSINOPHILS % 2.7 % (0.0-5.0); HEMOGLOBIN. 12.2 g/dL (12.0-16.0); LYMPHOCYTES % 8.9 % (20.0-50.0); MEAN CORPUSCULAR VOLUME 88.5 fL (81.0-99.0); MEAN PLATELET VOLUME 8.5 fl (7.4-10.4); MONOCYTES % 8.3 % (2.0-8.0); NEUTROPHILS % 79.8 % (40.0-76.0); PLATELET 239 x1000/uL (130-400); RED BLOOD CELL COUNT 3.95 mill/uL (4.2-5.4); RED CELL DISTRIBUTION WIDTH 14.3 % (11.6-14.6)
[2017-08-21 18:32] LABS: CHLORIDE 106 mEq/L (98-107)
[2017-08-21 18:33] LABS: INR 1.1; PARTIAL THROMBOPLASTIN TIME 27.3 sec (23.4-31.0); PROTHROMBIN TIME 11.4 sec (9.4-11.6)
[2017-08-21] MEDS ORDERED: MORPHINE SULFATE 2 MG/ML CPJ (NOT FOR IM USE) IV STA (19:29)
[2017-08-21] MEDS ORDERED: DIPHENHYDRAMINE 50MG/ML VIAL IV ONE (19:30)
[2017-08-21] MEDS ORDERED: POTASSIUM BICARB/CIT ACID 25 MEQ TABLET.EFF PO NR (19:30)
[2017-08-21] MEDS ORDERED: MORPHINE SULFATE 4 MG/ML CPJ (NOT FOR IM USE) IV NR (19:46)
[2017-08-21 20:13] LABS: CLARITY URINE CLEAR (CLEAR); COLOR URINE YELLOW (YELLOW); KETONES URINE TRACE (NEGATIVE); LEUKOCYTE ESTERASE URINE NEGATIVE (NEGATIVE); NITRITE URINE NEGATIVE (NEGATIVE); OCCULT BLOOD URINE NEGATIVE (NEGATIVE); PH URINE 6.5 (4.5-8.0); PROTEIN URINE NEGATIVE (NEGATIVE); SPECIFIC GRAVITY URINE 1.021 (1.005-1.030)
[2017-08-21 20:35] LABS: HCG SCREEN NEGATIVE
[2017-08-21 20:43] LABS: *AMPHETAMINES SCREEN URINE NEGATIVE (NEGATIVE); *BARBITURATES SCREEN URINE NEGATIVE (NEGATIVE); *BENZODIAZEPINES SCREEN URINE NEGATIVE (NEGATIVE); *COCAINE SCREEN URINE NEGATIVE (NEGATIVE); CANNABINOID URINE SCREEN NEGATIVE (NEGATIVE); METHADONE URINE SCREEN NEGATIVE (NEGATIVE); OPIATES URINE SCREEN NEGATIVE (NEGATIVE); PHENCYCLIDINE URINE SCREEN NEGATIVE (NEGATIVE)
[2017-08-21] MEDS: IPRATROPIUM/ALBUTEROL 0.5-3(2.5)MG/3ML NEB HHN PRN (22:11)
[2017-08-21 23:55] VITALS: BP 116/65
[2017-08-22] VITALS: BP 116/65
[2017-08-22] MEDS ORDERED: DEXTROSE 50% WATER 50ML SYRINGE IV PRN (00:30)
[2017-08-22] MEDS ORDERED: MEDICATION NOT ON FORMULARY EA (Alprazolam (Xanax) 1 MG) PO SCH (00:45)
[2017-08-22] MEDS ORDERED: HYDR-4009 PO (00:46)
[2017-08-22] MEDS ORDERED: ALPR1TAB2 PO (00:51)
[2017-08-22] MEDS: NITROGLYCERIN OINT 1GM/INCH UDPKT TD SCH ×4 (01:05→22:00)
[2017-08-22] MEDS: MORPHINE SULFATE 4 MG/ML CPJ (NOT FOR IM USE) IV PRN ×5 (01:06→22:13)
[2017-08-22] MEDS ORDERED: ALPRAZOLAM 0.5 MG TABLET PO PRN (02:15)
[2017-08-22 05:14] VITALS: BP 132/57
[2017-08-22] MEDS: BLOOD SUGAR DIAGNOSTIC STRIP TEST SCH ×4 (05:35→20:50)
[2017-08-22] MEDS: DIPHENHYDRAMINE 50MG/ML VIAL IV PRN ×2 (05:47→18:14)
[2017-08-22 08:00] VITALS: BP 128/72
[2017-08-22] MEDS: INSULIN LISPRO 100 UNITS/ML SUBCUT SCH ×4 (08:10→22:12)
[2017-08-22] MEDS: METOPROLOL TARTRATE 25MG TABLET PO SCH ×2 (08:56→20:56)
[2017-08-22] MEDS: GABAPENTIN 100MG CAPSULE PO SCH ×3 (08:57→17:28)
[2017-08-22] MEDS: LOSARTAN POTASSIUM 50 MG TABLET PO SCH (08:57)
[2017-08-22] MEDS: METFORMIN HCL 500MG TABLET PO SCH ×2 (08:57→17:28)
[2017-08-22] MEDS: ASPIRIN 325MG TABLET PO SCH (08:58)
[2017-08-22] MEDS ORDERED: ENOXAPARIN 30MG/0.3ML SYR SUBCUT SCH (09:00)
[2017-08-22] MEDS: HYDROCODONE/ACETAMINOPHEN 10/325MG TABLET PO PRN ×3 (09:00→20:56)
[2017-08-22 11:03] VITALS: BP 127/70
[2017-08-22] MEDS ORDERED: IPRATROPIUM/ALBUTEROL 0.5-3(2.5)MG/3ML NEB HHN PRN (13:30)
[2017-08-22] MEDS: IPRATROPIUM/ALBUTEROL 0.5-3(2.5)MG/3ML NEB HHN SCH ×4 (14:06→23:58)
[2017-08-22] MEDS: CARISOPRODOL 350 MG TABLET PO PRN (14:49)
[2017-08-22] MEDS: METHYLPREDNISOLONE SOD SUCC 40 MG/ML VIAL IV SCH ×2 (14:49→22:12)
[2017-08-22] MEDS: LACTULOSE 20G/30ML UDC PO PRN (14:51)
[2017-08-22 16:25] VITALS: BP 137/87
[2017-08-22] MEDS ORDERED: MEDICATION NOT ON FORMULARY EA (Nortriptyline Hcl 50 MG) PO SCH (17:00)
[2017-08-22] MEDS: DOCUSATE SODIUM 100MG CAPSULE PO SCH (17:00)
[2017-08-22] MEDS: NORTRIPTYLINE HCL 25MG CAPSULE PO SCH (17:28)
[2017-08-22 20:00] VITALS: BP 134/71
[2017-08-22] MEDS: ALPRAZOLAM 0.5 MG TABLET PO PRN (20:55)
[2017-08-22] MEDS: GUAIFENESIN 600MG ER TABLET PO SCH (20:56)
[2017-08-22] MEDS: ENOXAPARIN 40MG/0.4ML SYR SUBCUT SCH (20:57)
[2017-08-23] VITALS: BP 123/83
[2017-08-23] MEDS: NITROGLYCERIN OINT 1GM/INCH UDPKT TD SCH ×5 (00:23→21:43)
[2017-08-23] MEDS: ZOLPIDEM TARTRATE 5MG TABLET PO PRN ×2 (00:23→22:28)
[2017-08-23] MEDS: HYDROCODONE/ACETAMINOPHEN 10/325MG TABLET PO PRN ×5 (01:31→22:51)
[2017-08-23] MEDS: MORPHINE SULFATE 4 MG/ML CPJ (NOT FOR IM USE) IV PRN ×4 (02:44→21:35)
[2017-08-23] MEDS: IPRATROPIUM/ALBUTEROL 0.5-3(2.5)MG/3ML NEB HHN SCH ×4 (03:49→20:43)
[2017-08-23 04:00] VITALS: BP 123/77
[2017-08-23] MEDS: CARISOPRODOL 350 MG TABLET PO PRN (04:36)
[2017-08-23] MEDS: BLOOD SUGAR DIAGNOSTIC STRIP TEST SCH ×4 (06:02→21:21)
[2017-08-23] MEDS: METHYLPREDNISOLONE SOD SUCC 40 MG/ML VIAL IV SCH ×3 (06:05→21:34)
[2017-08-23 06:36] LABS: BASOPHILS % 0.2 % (0.0-2.0); HEMATOCRIT. 36.1 % (36.0-48.0); HEMOGLOBIN. 12.4 g/dL (12.0-16.0); LYMPHOCYTES % 12.3 % (20.0-50.0); MEAN CORPUSCULAR HEMOGLOBIN 30.4 pg (28.0-32.0); MEAN CORPUSCULAR VOLUME 88.5 fL (81.0-99.0); MEAN PLATELET VOLUME 9.2 fl (7.4-10.4); MONOCYTES % 2.1 % (2.0-8.0); NEUTROPHILS % 85.4 % (40.0-76.0); PLATELET 262 x1000/uL (130-400); RED BLOOD CELL COUNT 4.07 mill/uL (4.2-5.4); RED CELL DISTRIBUTION WIDTH 14.2 % (11.6-14.6)
[2017-08-23 06:44] LABS: CHLORIDE 102 mEq/L (98-107)
[2017-08-23 08:00] VITALS: BP 115/74
[2017-08-23] MEDS: LOSARTAN POTASSIUM 50 MG TABLET PO SCH (08:57)
[2017-08-23] MEDS: METFORMIN HCL 500MG TABLET PO SCH ×2 (08:57→16:53)
[2017-08-23] MEDS: GUAIFENESIN 600MG ER TABLET PO SCH ×2 (08:57→21:34)
[2017-08-23] MEDS: GABAPENTIN 100MG CAPSULE PO SCH ×3 (08:57→16:53)
[2017-08-23] MEDS: DOCUSATE SODIUM 100MG CAPSULE PO SCH ×2 (08:57→16:53)
[2017-08-23] MEDS: ENOXAPARIN 40MG/0.4ML SYR SUBCUT SCH ×2 (08:58→21:35)
[2017-08-23] MEDS: ASPIRIN 325MG TABLET PO SCH (08:58)
[2017-08-23] MEDS: METOPROLOL TARTRATE 25MG TABLET PO SCH ×2 (08:58→21:34)
[2017-08-23] MEDS: INSULIN LISPRO 100 UNITS/ML SUBCUT SCH ×4 (09:03→21:37)
[2017-08-23] MEDS: AZITHROMYCIN 500 MG TABLET PO SCH (11:41)
[2017-08-23] MEDS: ALPRAZOLAM 0.5 MG TABLET PO PRN ×2 (11:42→22:28)
[2017-08-23] MEDS: INSULIN GLARGINE UD 100 UNITS/ML SYR SUBCUT SCH ×2 (11:52→21:37)
[2017-08-23 12:00] VITALS: BP 122/60
[2017-08-23] MEDS: IPRATROPIUM/ALBUTEROL 0.5-3(2.5)MG/3ML NEB HHN PRN (12:31)
[2017-08-23 16:00] VITALS: BP 131/72
[2017-08-23] MEDS: NORTRIPTYLINE HCL 25MG CAPSULE PO SCH (16:53)
[2017-08-23] MEDS: DIPHENHYDRAMINE 50MG/ML VIAL IV PRN ×2 (17:48→22:02)
[2017-08-23 20:00] VITALS: BP 142/78
[2017-08-24] VITALS: BP 135/83
[2017-08-24] MEDS: IPRATROPIUM/ALBUTEROL 0.5-3(2.5)MG/3ML NEB HHN SCH ×6 (01:08→21:30)
[2017-08-24] MEDS: MORPHINE SULFATE 4 MG/ML CPJ (NOT FOR IM USE) IV PRN ×5 (01:48→23:28)
[2017-08-24] MEDS: CARISOPRODOL 350 MG TABLET PO PRN ×3 (01:52→22:05)
[2017-08-24 04:00] VITALS: BP 131/80
[2017-08-24] MEDS: HYDROCODONE/ACETAMINOPHEN 10/325MG TABLET PO PRN ×3 (04:04→21:36)
[2017-08-24] MEDS: NITROGLYCERIN OINT 1GM/INCH UDPKT TD SCH ×3 (06:00→21:18)
[2017-08-24] MEDS: METHYLPREDNISOLONE SOD SUCC 40 MG/ML VIAL IV SCH ×3 (06:26→21:35)
[2017-08-24] MEDS: BLOOD SUGAR DIAGNOSTIC STRIP TEST SCH ×4 (06:35→21:17)
[2017-08-24] MEDS: DIPHENHYDRAMINE 50MG/ML VIAL IV PRN ×2 (07:01→18:51)
[2017-08-24 08:00] VITALS: BP 114/83
[2017-08-24] MEDS: GUAIFENESIN 600MG ER TABLET PO SCH ×2 (09:20→21:36)
[2017-08-24] MEDS: METFORMIN HCL 500MG TABLET PO SCH ×2 (09:20→18:50)
[2017-08-24] MEDS: AZITHROMYCIN 500 MG TABLET PO SCH (09:20)
[2017-08-24] MEDS: GABAPENTIN 100MG CAPSULE PO SCH ×3 (09:20→18:50)
[2017-08-24] MEDS: ALPRAZOLAM 0.5 MG TABLET PO PRN ×2 (09:20→18:50)
[2017-08-24] MEDS: ENOXAPARIN 40MG/0.4ML SYR SUBCUT SCH ×2 (09:20→21:34)
[2017-08-24] MEDS: LOSARTAN POTASSIUM 50 MG TABLET PO SCH (09:21)
[2017-08-24] MEDS: DOCUSATE SODIUM 100MG CAPSULE PO SCH ×2 (09:22→18:50)
[2017-08-24] MEDS: METOPROLOL TARTRATE 25MG TABLET PO SCH ×2 (09:22→21:36)
[2017-08-24] MEDS: ASPIRIN 325MG TABLET PO SCH (09:23)
[2017-08-24] MEDS: INSULIN LISPRO 100 UNITS/ML SUBCUT SCH ×4 (09:28→21:00)
[2017-08-24] MEDS: INSULIN GLARGINE UD 100 UNITS/ML SYR SUBCUT SCH ×2 (09:28→21:34)
[2017-08-24 12:00] VITALS: BP 132/63
[2017-08-24 16:00] VITALS: BP 127/60
[2017-08-24] MEDS: NORTRIPTYLINE HCL 25MG CAPSULE PO SCH (18:50)
[2017-08-24] MEDS: LACTULOSE 20G/30ML UDC PO PRN (18:50)
[2017-08-24 20:00] VITALS: BP 144/89
[2017-08-24] MEDS: ZOLPIDEM TARTRATE 5MG TABLET PO PRN (22:05)
[2017-08-25] VITALS: BP 149/97
[2017-08-25] MEDS: IPRATROPIUM/ALBUTEROL 0.5-3(2.5)MG/3ML NEB HHN SCH ×6 (00:32→20:49)
[2017-08-25] MEDS: DIPHENHYDRAMINE 50MG/ML VIAL IV PRN ×3 (03:13→22:01)
[2017-08-25 04:00] VITALS: BP 151/91
[2017-08-25] MEDS: MORPHINE SULFATE 4 MG/ML CPJ (NOT FOR IM USE) IV PRN ×4 (04:48→20:32)
[2017-08-25] MEDS: NITROGLYCERIN OINT 1GM/INCH UDPKT TD SCH ×3 (06:00→21:56)
[2017-08-25] MEDS: METHYLPREDNISOLONE SOD SUCC 40 MG/ML VIAL IV SCH ×3 (06:19→22:01)
[2017-08-25] MEDS: BLOOD SUGAR DIAGNOSTIC STRIP TEST SCH ×4 (06:24→21:56)
[2017-08-25 08:00] VITALS: BP 121/93
[2017-08-25] MEDS: METOPROLOL TARTRATE 25MG TABLET PO SCH ×2 (08:49→22:01)
[2017-08-25] MEDS: DOCUSATE SODIUM 100MG CAPSULE PO SCH ×2 (08:49→17:33)
[2017-08-25] MEDS: AZITHROMYCIN 500 MG TABLET PO SCH (08:49)
[2017-08-25] MEDS: ASPIRIN 325MG TABLET PO SCH (08:49)
[2017-08-25] MEDS: LOSARTAN POTASSIUM 50 MG TABLET PO SCH (08:49)
[2017-08-25] MEDS: GUAIFENESIN 600MG ER TABLET PO SCH ×2 (08:50→22:01)
[2017-08-25] MEDS: ENOXAPARIN 40MG/0.4ML SYR SUBCUT SCH ×2 (08:50→22:02)
[2017-08-25] MEDS: GABAPENTIN 100MG CAPSULE PO SCH ×3 (08:50→17:33)
[2017-08-25] MEDS: METFORMIN HCL 500MG TABLET PO SCH ×2 (08:50→17:33)
[2017-08-25] MEDS: INSULIN LISPRO 100 UNITS/ML SUBCUT SCH ×4 (08:51→22:02)
[2017-08-25] MEDS: CARISOPRODOL 350 MG TABLET PO PRN (09:08)
[2017-08-25] MEDS: INSULIN GLARGINE UD 100 UNITS/ML SYR SUBCUT SCH ×2 (10:09→22:02)
[2017-08-25] MEDS: ALPRAZOLAM 0.5 MG TABLET PO PRN (11:24)
[2017-08-25 12:00] VITALS: BP 145/83
[2017-08-25] MEDS ORDERED: TERBUTALINE SULFATE 1MG/ML VIAL SUBCUT NR (12:30)
[2017-08-25 16:00] VITALS: BP 134/79
[2017-08-25] MEDS: ACETYLCYSTEINE 100MG/ML 10% VIAL 4ML INH SCH (16:48)
[2017-08-25] MEDS: NORTRIPTYLINE HCL 25MG CAPSULE PO SCH (17:32)
[2017-08-25 20:00] VITALS: BP 150/83
[2017-08-25] MEDS: ZOLPIDEM TARTRATE 5MG TABLET PO PRN (22:01)
[2017-08-26] VITALS: BP 150/85
[2017-08-26] MEDS: IPRATROPIUM/ALBUTEROL 0.5-3(2.5)MG/3ML NEB HHN SCH ×4 (00:02→12:21)
[2017-08-26] MEDS: ACETYLCYSTEINE 100MG/ML 10% VIAL 4ML INH SCH ×2 (00:02→09:18)
[2017-08-26] MEDS: HYDROCODONE/ACETAMINOPHEN 10/325MG TABLET PO PRN ×2 (00:15→05:28)
[2017-08-26] MEDS: MORPHINE SULFATE 4 MG/ML CPJ (NOT FOR IM USE) IV PRN ×3 (01:51→12:30)
[2017-08-26] MEDS: CARISOPRODOL 350 MG TABLET PO PRN (01:56)
[2017-08-26 04:00] VITALS: BP 151/96
[2017-08-26] MEDS: NITROGLYCERIN OINT 1GM/INCH UDPKT TD SCH ×2 (05:29→14:19)
[2017-08-26] MEDS: BLOOD SUGAR DIAGNOSTIC STRIP TEST SCH ×2 (05:29→11:42)
[2017-08-26] MEDS: METHYLPREDNISOLONE SOD SUCC 40 MG/ML VIAL IV SCH (05:29)
[2017-08-26 07:57] VITALS: BP 142/85
[2017-08-26] MEDS: GUAIFENESIN 600MG ER TABLET PO SCH (08:09)
[2017-08-26] MEDS: ALPRAZOLAM 0.5 MG TABLET PO PRN (08:09)
[2017-08-26] MEDS: ENOXAPARIN 40MG/0.4ML SYR SUBCUT SCH (08:09)
[2017-08-26] MEDS: ASPIRIN 325MG TABLET PO SCH (08:09)
[2017-08-26] MEDS: METOPROLOL TARTRATE 25MG TABLET PO SCH (08:10)
[2017-08-26] MEDS: AZITHROMYCIN 500 MG TABLET PO SCH (08:10)
[2017-08-26] MEDS: LOSARTAN POTASSIUM 50 MG TABLET PO SCH (08:10)
[2017-08-26] MEDS: DOCUSATE SODIUM 100MG CAPSULE PO SCH (08:10)
[2017-08-26] MEDS: GABAPENTIN 100MG CAPSULE PO SCH ×2 (08:10→12:33)
[2017-08-26] MEDS: METFORMIN HCL 500MG TABLET PO SCH (08:10)
[2017-08-26] MEDS: INSULIN LISPRO 100 UNITS/ML SUBCUT SCH ×2 (08:13→12:32)
[2017-08-26] MEDS: INSULIN GLARGINE UD 100 UNITS/ML SYR SUBCUT SCH (10:43)
[2017-08-26] MEDS: DIPHENHYDRAMINE 50MG/ML VIAL IV PRN (10:46)
[2017-08-26 12:00] VITALS: BP 153/89
[2017-08-26 13:01] VITALS: BP 149/87
== END 2017-08-26 14:39 | disposition home or self-care (01) | DRG 141 ==
LOC: ER 17:33 → EDBEDREQ 19:32 → 7WST 19:34 → EDBEDREQ 19:39 → ENRESERV 22:25
PROVIDERS: ADMIT Internal Medicine; ATTEND Internal Medicine
PROC: 5A09357 Assistance with Respiratory Ventilation, Less than 24 Consecutive Hours, Continuous Positive Airway Pressure (ICD-10-PCS; principal; 2017-08-25)
PROC: 5A09357 Assistance with Respiratory Ventilation, Less than 24 Consecutive Hours, Continuous Positive Airway Pressure (ICD-10-PCS; 2017-08-26)
DX: J45.901 Unspecified asthma with (acute) exacerbation (principal); Z68.43 Body mass index [BMI] 50.0-59.9, adult; I10 Essential (primary) hypertension; E66.01 Morbid (severe) obesity due to excess calories; E11.9 Type 2 diabetes mellitus without complications; M79.7 Fibromyalgia; E78.5 Hyperlipidemia, unspecified; E78.00 Pure hypercholesterolemia, unspecified; F17.200 Nicotine dependence, unspecified, uncomplicated; Z60.2 Problems related to living alone; E87.6 Hypokalemia; Z90.710 Acquired absence of both cervix and uterus; Z86.711 Personal history of pulmonary embolism; Z88.8 Allergy status to other drugs, medicaments and biological substances; Z79.84 Long term (current) use of oral hypoglycemic drugs; Z87.19 Personal history of other diseases of the digestive system; Z79.899 Other long term (current) drug therapy; Z90.49 Acquired absence of other specified parts of digestive tract; Z72.89 Other problems related to lifestyle; Z71.3 Dietary counseling and surveillance
CPT/HCPCS: 36415; 71045; 80048; 80053; 80305; 81003; 82962; 83036; 83690; 83880; 84484; 84703; 85025; 85379; 85610; 85730; 87804; 93005; 94640; 94660; 96372; 96374; 96375; 99285; G0482; J1200; J1650; J1815; J2270; J2920; J3105; J7608; J7620